=== PATIENT | male | born 1955 | race Caucasian/White ===

== ENCOUNTER 2017-03-09 16:42 | Emergency (ER) | payer OTHER, BC ==
[~2017-03-09] VITALS: Ht 172.7 cm; Wt 85.0 kg
[~2017-03-09 16:42] MED LIST: ASPI-435 PO
[2017-03-09 16:44] VITALS: TEMP 36.9; Ht 172.7 cm; Wt 85.0 kg
[2017-03-09] MEDS ORDERED: OXYCODONE HCL IR 5 MG TAB (IMMEDIATE RELEASE) PO STA (16:50)
[2017-03-09] MEDS ORDERED: PRLSR20 PO (17:23)
--- NOTE | 2017-03-09 17:23 | DIAGNOSTIC IMAGING REPORT ---
L KNEE 3 VIEWS CLINICAL HISTORY: Left knee pain. COMPARISON: Left knee radiographs October 12, 2012. FINDINGS: The patient was unable to extend his left knee. Therefore, evaluation is suboptimal. However, no acute fracture or joint effusion is identified. There is minimal spurring of the superior pole of the patella. No osseous lesion is identified. There is minimal osteophytosis of the left knee. IMPRESSION: 1. No acute fracture. 2. Mild osteoarthritis of the left knee. 3. Suboptimal evaluation given patient's inability to extend left knee. Electronically signed by: Dominic Perry M.D. 03/09/2017 5:21 PM Dictated Date/Time: 03/09/2017 5:20 PM
--- NOTE | 2017-03-09 18:11 | EMERGENCY ROOM VISIT NOTE ---
History First contact with patient: 16:48 Chief Complaint: KNEEPAIN Stated Complaint: LEFT KNEE PAIN, SWELLING, NON WEIGHT BEARING- History of Present Illness The patient is a 61 year old male who presents to the Emergency Room via private vehicle accompanied by female with complaints of "left knee pain, swelling, nonweightbearingworkmen's comp". The patient states that earlier today while at work around 12:30 PM he was stepping from a high step and felt a pop in his Left knee. He states that since then he cannot fully extend it and there is pain around the medial aspect of the knee inferiorly and proximally. He states that he has a history of left knee injury and had a surgery performed by Dr. Corona. He currently rates his pain as a 10/10. Review of Systems A complete 6-point Review of Systems was discussed with the patient, with pertinent positives and negatives listed in the History of Present Illness. All remaining Review of Systems questions can be considered negative unless otherwise specified. Past Medical/Surgical History Medical Problems: (1) HTN (hypertension) Family History Cancer Hypertension Kidney stones Social History Smoking Status: Never Smoker Alcohol Use: occasionally Marital Status: Housing Status: lives with family Occupation Status: employed Current/Historical Medications Scheduled Aspirin (Aspirin 81), 1 TAB PO DAILY Omeprazole (Prilosec), 20 MG PO DAILY Scheduled PRN Oxycodone Ir (Roxicodone Ir), 1-2 TAB PO Q4H PRN for Pain Physical Exam Vital Signs Date Time Temp Pulse Resp B/P (MAP) Pulse Ox O2 Delivery O2 Flow Rate FiO2 03/09/17 18:24 89 18 118/78 97 Room Air 03/09/17 16:44 36.9 97 18 122/82 99 Room Air Physical Exam VITAL SIGNS - Vital signs and nursing notes were reviewed. Stable. GENERAL -61-year-old male appearing his stated age who is in no acute distress. Communicates well with provider and answers questions appropriately. SKIN - Without rashes. No petechial rashes. The skin overlying the patient's left knee is edematous but not erythematous. EXTREMITIES - No clubbing or peripheral cyanosis. No pretibial edema present. There is tenderness to palpation overlying the posterior proximal aspect of the patient's left calf, the medial aspect of the knee as well as the distal quad/ history region. Decreased ROM of the L knee.+5/5 strength noted in UE/LE bilaterally. Medical Decision & Procedures ER Provider Diagnostic Interpretation: L KNEE 3 VIEWS CLINICAL HISTORY: Left knee pain. COMPARISON: Left knee radiographs October 12, 2012. FINDINGS: The patient was unable to extend his left knee. Therefore, evaluation is suboptimal. However, no acute fracture or joint effusion is identified. There is minimal spurring of the superior pole of the patella. No osseous lesion is identified. There is minimal osteophytosis of the left knee. IMPRESSION: 1. No acute fracture. 2. Mild osteoarthritis of the left knee. 3. Suboptimal evaluation given patient's inability to extend left knee. Electronically signed by: Dominic Perry M.D. 03/09/2017 5:21 PM Dictated Date/Time: 03/09/2017 5:20 PM Medications Administered Medications (Trade) Dose Ordered Sig/Schuyler Route Start Time Stop Time Status Last Admin Dose Admin Oxycodone HCl (Roxicodone Immediate Rel Tab) 5 mg NOW STAT PO 03/09/17 16:50 03/09/17 16:51 DC 03/09/17 16:57 5 MG Medical Decision Patient was seen and evaluated as above. He presents to us today with left knee pain. It is reproducible on exam. I'm unable to appreciate any complete her full muscle tears. It does appear that the patient may be experiencing a ligamentous injury perhaps or sprain. He was informed to me that the patient had already established an appointment tomorrow with his established orthopedic surgeon which I believe is appropriate. I do not believe there is any surgical intervention tonight for his ailments. He'll be placed in a knee immobilizer and made nonweightbearing with his crutches that he has. He'll be given a short prescription of OxyIR which she was given one tablet of here. He was educated upon management, educated upon worrisome symptoms which to return, had questions about distress, and was discharged home in good condition. He does have excellent pulses in the affected extremity upon my reevaluation. In the evaluation and treatment of this patient, the following differential diagnoses were considered: Patellar Fracture, Tibial Plateau Fracture, Distal Femur Fracture, ACL Injury, PCL Injury, Collateral Ligament Injury, Pes Anserine Bursitis, Maisonneuve Fracture. In the treatment of this patient controlled medication was utilized and therefore the [facility], Prescription Drug Monitoring Program website was utilized to look up this patient. No concerns were identified that would prohibit or alter my treatment decision. Impression Primary Impression: Knee pain Departure Information Dispostion Home / Self-Care Condition GOOD Prescriptions Oxycodone Ir (Roxicodone Ir) 5 Mg Tab 1-2 TAB PO Q4H Y for Pain, #20 TAB For Initial Treatment Prov: Alexis Will PA-C 03/09/17 Referrals Annabella Montgomery MD (PCP) Patient Instructions My [facility] Additional Instructions You have been treated in the Emergency Department for Knee Pain. You have received pain medicine in the emergency department which impairs your ability to operate a vehicle. It is illegal for you to drive after receiving these medicines. You have been prescribed Oxy IR to be used for pain control. This is a narcotic medication. You cannot drive or consume alcohol while on this medicine. This medicine should only be used for pain that cannot be controlled with over-the- counter pain medicines. For pain control, you can use the following [id number] medicines (if >12 yo): - Regular strength (325mg/tab) Tylenol (acetaminophen) 2 tabs every 4-6 hours as needed. Do not exceed 12 tablets in a 24 hour period. Avoid taking more than 3 grams (3000 mg) of Tylenol per day. This includes any other sources of acetaminophen you may take on a regular basis. - Regular strength (200 mg/tab) Advil (ibuprofen) 1-2 tabs every 4-6 hours as needed. Do not exceed a dose of 3200 mg per day. If this is a recent injury (<24 hrs), ice can be applied to the area of pain for the first 3 days to help decrease pain and inflammation. Ice massages can be performed by freezing water in a paper cup, peeling back the cup to expose the ice and then massaging over the affected area. You have been provided the number for an Orthopaedic Surgeon. You should call this number as soon as possible to establish a follow-up visit from today's Emergency Department visit. Keep the knee brace in place until cleared by Orthopedics. Use the crutches you have to keep ALL weight off of the knee until weight bearing is tolerable. Return to the Emergency Department if your current symptoms worsen despite treatment course outlined above. Problem Qualifiers Primary Impression: Knee pain Laterality: left
[2017-03-09] MEDS ORDERED: OXYC1TAB3 PO (18:17)
[2017-03-09 18:24] VITALS: BP 118/78; PULSE 89; O2SAT 97
== END 2017-03-09 18:32 | disposition home or self-care (01) ==
LOC: C.EDB 16:42 → C.EDD 18:32
DX: M25.562 Pain in left knee (principal); I10 Essential (primary) hypertension; Z82.49 Family history of ischemic heart disease and other diseases of the circulatory system; Z84.1 Family history of disorders of kidney and ureter; Z79.82 Long term (current) use of aspirin

== ENCOUNTER → 2017-03-10 | Outpatient (CLI) | payer OTHER, BC ==
[~2017-03-10] MED LIST changes: +OXYC1TAB3 PO; +PRLSR20 PO
[2017-03-10 20:26] LABS: SYNOVIAL FLUID APPEARANCE CLOUDY; SYNOVIAL FLUID COLOR YELLOW
[2017-03-10 20:27] LABS: SYNOVIAL FLUID MONONUC RELAT 16.4 %; SYNOVIAL FLUID POLYNUC RELAT 83.6 %
== END | disposition home or self-care (01) ==
LOC: C.LABBC 13:22
PROVIDERS: ATTEND Orthopaedic Surgery
DX: M25.461 Effusion, right knee (principal)